=== PATIENT | female | born 1925 | race Caucasian/White ===

== ENCOUNTER 2016-03-21 13:04 | Emergency (ER) | payer MEDICARE, OTHER ==
[2016-03-21 13:12] VITALS: BP 134/51
--- NOTE | 2016-03-26 07:45 | ED ---
ED Suture/Wound Check - HPI Summary HPI Summary: Pt here for suture removal - fell on 03/14 and had 6 sutures placed over the bridge of her nose. Appears to be healing well. Denies fever, chills, erythema, drainage. Pt has been keeping the area clean w/o complications. This occurred as the result of a fall. Denies new onset change in vision, vomiting, tinnitus, headache, insomnia, change in mood, numbness, weakness. - History Of Current Complaint Chief Complaint: EDLacSutureRecheck Stated Complaint: REMOVAL OF STITCHES Time Seen by Provider: 03/21/16 14:25 Hx Obtained From: Patient, Family/Therapy Assistant - pt's children Pain Intensity: 0 Pain Scale Used: 0-10 Numeric - Allergies/Home Medications Allergies/Adverse Reactions: Allergies Allergy/AdvReac Type Severity Reaction Status Date / Time No Known Allergies Allergy Verified 03/21/16 13:12 PMH/Surg Hx/FS Hx/Imm Hx Previously Healthy: Yes - C2 fx as result of fall on 03/14/2016 Endocrine/Hematology History: Reports: Hx Anticoagulant Therapy - pradaxa, Hx Thyroid Disease Denies: Hx Blood Disorders Cardiovascular History: Reports: Hx Hypertension, Hx Valvular Heart Disease - Surgical History Surgery Procedure, Year, and Place: partial hyster. right TKR - Immunization History Date of Tetanus Vaccine: unknown Infectious Disease History: No Infectious Disease History: Denies: Hx Clostridium Difficile, Hx Hepatitis, Hx Human Immunodeficiency Virus (HIV), Hx of Known/Suspected MRSA, Hx Shingles, Hx Tuberculosis, Traveled Outside the [place] in Last 30 Days - Family History Known Family History: Positive: Cardiac Disease - daughter with afib - Social History Occupation: Retired Alcohol Use: None Substance Use Type: Reports: None Hx Tobacco Use: No Smoking Status (MU): Never Smoked Tobacco Review of Systems Negative: Fever, Chills Eyes: Other - no new changes ENT: Negative Negative: Chest Pain Negative: Shortness Of Breath Negative: Vomiting Positive: no symptoms reported Musculoskeletal: Other - C2 fx as result of fall - wearing Williams-J collar Skin: Other - see HPI Neurological: Negative Psychological: Normal All Other Systems Reviewed And Are Negative: Yes Physical Exam Triage Information Reviewed: Yes Vital Signs On Initial Exam: Initial Vitals Temp Pulse Resp BP Pulse Ox 97.4 F 68 16 134/51 99 03/21/16 13:09 03/21/16 13:09 03/21/16 13:09 03/21/16 13:09 03/21/16 13:09 Vital Signs Reviewed: Yes Appearance: Positive: Well-Appearing, No Pain Distress, Well-Nourished Skin: Positive: Warm, Dry - 6 sutures placed in wound over bridge of nose - no erythema, no edema, no drainage - skin appears to be well approximated with soft scab in place- no facial swelling Head/Face: Positive: Normal Head/Face Inspection Eyes: Positive: Normal, EOMI, RENY, Conjunctiva Clear ENT: Positive: Hearing grossly normal, Pharynx normal Respiratory/Lung Sounds: Positive: Breath Sounds Present Cardiovascular: Positive: Normal Musculoskeletal: Positive: Normal Neurological: Positive: Alert, Oriented to Person Place, Time Procedures - Procedure Summary Procedure Summary: 6 sutures along nasal bridge removed w/o difficulty - wound cleaned and triple anbx ointment applied - pt tolerated well Diagnostics - Vital Signs Vital Signs Temp Pulse Resp BP Pulse Ox 03/21/16 14:48 16 03/21/16 13:09 97.4 F 68 16 134/51 99 - Laboratory Lab Statement: Any lab studies that have been ordered have been reviewed, and results considered in the medical decision making process. Course/Dx - Clinical Impression Provider Diagnoses: STITCHES REMOVAL Discharge - Discharge Plan Condition: Stable Disposition: HOME Patient Education Materials: Stitches Removal (ED) Referrals: Non Staff,Doctor [Primary Care Provider] - Additional Instructions: If you develop redness, swelling, purulent drainage, fever, chills, seek medical attention to evaluate for infection
== END 2016-03-21 14:48 | disposition home or self-care (01) ==
LOC: ED 13:04
DX: Z48.02 Encounter for removal of sutures (principal)
CPT/HCPCS: 99281